=== PATIENT | male | born 1975 | race Caucasian/White ===

== ENCOUNTER → 2017-04-12 | Outpatient (CLI) | payer OTHER ==
[~2017-04-12] MED LIST: GADAVIST IV PRN; MULT-506 PO
--- NOTE | 2017-04-12 13:13 | DIAGNOSTIC IMAGING REPORT ---
MRI THE LEFT MIDFOOT WITHOUT A WITH GADOLINIUM CLINICAL HISTORY: Chronic left foot pain. Possible subluxation syndrome of the cuboid. COMPARISON STUDY: No previous studies for comparison. FINDINGS: Imaging was performed in the sagittal, axial, and coronal planes before and after the administration of 11 cc of intravenous Gadavist. There are no areas of marrow replacement to indicate neoplasm. There are no areas of marrow edema to indicate occult fracture or bone bruise. The calcaneocuboid relationship appears normal, on these nonstress views. There is no MRI evidence of ligamentous disruption. There is no evidence of tendon tear. There are no pathologically enhancing masses. There is a 10 x 5 x 5 mm subcutaneous cyst within the lateral soft tissues just dorsal to the base of the fourth metatarsal IMPRESSION: 1. No evidence of occult fracture or bone bruise 2. No evidence of subluxation. The calcaneocuboid relationship appears normal 3. No evidence of ligamentous disruption. No evidence of tendon tear 4. 10 x 5 x 5 mm subcutaneous cyst within the lateral soft tissues just dorsal to the base of the fourth metatarsal Electronically signed by: Mak Moore M.D. 04/12/2017 1:12 PM Dictated Date/Time: 04/12/2017 12:53 PM
== END | disposition home or self-care (01) ==
LOC: C.MRI 10:39
PROVIDERS: ATTEND Podiatrist Primary Podiatric Medicine
DX: M79.672 Pain in left foot (principal)

== ENCOUNTER → 2017-06-14 | Outpatient (CLI) | payer OTHER ==
[~2017-06-14] MED LIST changes: -GADAVIST IV PRN
[2017-06-14 10:14] LABS: CHOLESTEROL/HDL RATIO 3.1
== END | disposition home or self-care (01) ==
LOC: C.LAB 07:04
PROVIDERS: ATTEND Family Medicine
DX: Z13.1 Encounter for screening for diabetes mellitus (principal); Z13.6 Encounter for screening for cardiovascular disorders

== ENCOUNTER → 2018-04-03 | Outpatient (CLI) | payer OTHER ==
--- NOTE | 2018-04-03 11:54 | DIAGNOSTIC IMAGING REPORT ---
L UPPER EXT JOINT WITHOUT CLINICAL HISTORY: 42 years-old Male presenting with PAIN IN L DISTAL BICEPS RUPTURE. TECHNIQUE: Multisequence, multiplanar MR imaging of the left elbow was performed without the use of intravenous contrast. IV contrast: None. COMPARISON: None. FINDINGS: Localizer images: Unremarkable. Bone marrow: Normal bone marrow signal intensity. No bony edema. Articular cartilage: Articular cartilage preserved. Lateral collateral ligament: Lateral collateral ligaments including the radial collateral ligament, lateral ulnar collateral ligament, and annular ligament intact. Common extensor tendon: Intact. Medial collateral ligament: Medial collateral ligament complex including the anterior, posterior and oblique bands of the ulnar collateral ligament intact. Common flexor tendon: Intact. Ulnar nerve: Normal. Tendons: Triceps, biceps, and brachialis tendons intact. Joint effusion: No significant elbow joint effusion. Muscle: Normal muscle bulk and muscle signal intensity. Superficial soft tissue: No subcutaneous edema. IMPRESSION: Normal MR examination of the elbow. Electronically signed by: Enoc Guadarrama M.D. 04/03/2018 11:53 AM Dictated Date/Time: 04/03/2018 11:42 AM
== END | disposition home or self-care (01) ==
LOC: C.MRI 10:54
PROVIDERS: ATTEND Orthopaedic Surgery
DX: M79.602 Pain in left arm (principal)

== ENCOUNTER → 2018-06-05 | Outpatient (CLI) | payer OTHER ==
[2018-06-05 10:09] LABS: BLOOD UREA NITROGEN 20 mg/dl (7-18); CALCIUM 9.1 mg/dl (8.5-10.1); CARBON DIOXIDE 29 mmol/L (21-32); CHOLESTEROL 174 mg/dl (0-200); CREATININE 1.33 mg/dl (0.60-1.40); GLUCOSE 83 mg/dl (70-99); LDL CHOLESTEROL CALCULATED 100 mg/dl; POTASSIUM 4.2 mmol/L (3.5-5.1); SODIUM 140 mmol/L (136-145)
== END | disposition home or self-care (01) ==
LOC: C.LAB 07:05
PROVIDERS: ATTEND Family Medicine
DX: Z00.00 Encounter for general adult medical examination without abnormal findings (principal)

== ENCOUNTER 2022-12-09 22:41 | Observation (INO) ==
[2022-12-09] MEDS ORDERED: HYDROmorphone INJ 0.5 MG/0.5 ML SYR IV STA (23:00)
[2022-12-09] MEDS ORDERED: AMPICILLIN/SULBACTAM SOD 3,000 MG in 0.9 % SODIUM CHLORIDE 100 ML IV STA (23:00)
[2022-12-09] MEDS ORDERED: KETOROLAC 30 MG/ML VIAL IV STA (23:00)
--- NOTE | 2022-12-09 23:06 | Emergency Department Note ---
Impression & Plan Cellulitis of hand, left, Cat bite ED Provider Note INFORMANT: Patient ED PROVIDER(S): Gabriel Petersen DO CHIEF COMPLAINT: cellulitis and pain right hand, cat bite PLAN: Disposition: Admission Condition: Stable Outpatient prescription management: none Referral: I spoke with the hospitalist, who will see the patient for admission/observation and further evaluation and consultation. MEDICAL DECISION MAKING: This is a 47-year-old male who presents to the ED with a chief complaint of a right hand infection. The patient states that his cat bit him on Saturday. He wa s started on Augmentin from the urgent care on Saturday. His symptoms are worsened since then despite the Augmentin. He has had the Augmentin all day Saturday and Saturday. The patient reports increasing swelling and redness and pain and the redness is traveling up his arm towards the elbow. No nausea or vomiting. Vital signs reveal hypertension. Physical exam reveals erythema to the dorsal aspect of the hand starting at the MCP joints traveling of the right dorsal forearm. There is swelling and erythema. No discharge. The pain is worsened with flexion. CBC and chemistry panel was unremarkable. No leukocytosis or anemia. The patient was [place] of IV Unasyn. He was given IV Toradol and some IV hydromorphone for the pain. He will be seen by the hospitalist for further evaluation and care. Triage Nursing notes reviewed. Vital Signs: reviewed Prior /Outside records reviewed: none Differential diagnosis: Cellulitis, calf pain, lymphangitis, systemic infection, deep hand infection Diagnostics, as interpreted by me: 12 lead ECG: none Cardiac Monitoring: none Medical decision rules: none Imaging studies: Procedures: none. Critical care: none. HPI: See MDM above. PAST MEDICAL HISTORY: See Below PAST SURGICAL HISTORY: See Below SOCIAL HISTORY: See Below HOME MEDICATIONS: See Below ALLERGIES: See Below VITALS: See Below PHYSICAL EXAMINATION: CONSTITUTIONAL/VITAL SIGNS: Reviewed GENERAL: Non-toxic in appearance. INTEGUMENTARY: Warm, dry, and [place]. HEAD: Normocephalic. EYES: without scleral icterus. ENT/OROPHARYNX: clear and moist. RESPIRATORY: No increased work of breathing. Lungs clear. CARDIOVASCULAR: Regular rate. Regular rhythm. GI/ABDOMEN: Soft and nontender. . EXTREMITIES: Normal NEUROLOGICAL: Intact without focal deficits. PSYCHIATRIC: Normal affect. MUSCULOSKELETAL: Normal. TRIAGE NURSING DOCUMENTATION REVIEWED. Past Med/Surg History Medical History Asthma LAST USED INHALER 2 WEEKS AGO Surgical History Family history of reaction to anesthesia MOTHER>NAUSEA H/O wrist surgery right H/O: knee surgery LEFT X 3 RT X 2 H/O: vasectomy Hx of LASIK S/P tendon repair right bicep tendon repair Family History Father Asthma Hypertension Lung disease Skin cancer Mother Skin cancer Breast cancer Grandmother Colorectal cancer Denies family history of Ovarian cancer Prostate cancer Myocardial infarction Social History Smoking Status: Never smoker Second Hand Exposure: Yes ( A CHILD); Hx Alcohol Use: Yes Alcohol type: beer Alcohol Intake Frequency: 2-4 x/Month Preferred Language: Libyan Communication Ability: Effective Visual Impairment: No Limitations Hearing Ability: Normal Diving Board Assembler Required: No Beliefs That Will Affect Care: None marital status: Current Living Situation: Family current occupational status: employed current occupation: Clinical Records Associate How many Children do You have: 1 Feels Safe at Home: Yes Childhood Exposure to Second-Hand Smoke: Yes Dental Care, Regularly: Yes Physical Activity Frequency: 5-6 Times per Week Seatbelt Use: always Sunscreen Use: No Assistive Devices: Glasses Allergies Allergies Allergy/AdvReac Type Severity Reaction Status Date / Time bee venom protein (honey bee) Allergy Unknown no Verified 08/17/22 10:46 problems recently Home Meds Home Medications Medication Instructions Recorded Confirmed multivitamin 1 tab PO QAM 08/08/22 08/17/22 Previous Rx's Medication Instructions Recorded ipratropium 20 mcg-albuterol 100 1 puff inhalation Q4H PRN chest 06/13/21 mcg/actuation mist for inhalation colds #4 grams (Combivent Respimat) fluticasone furoate 200 1 inh inhalation DAILY PRN chest 11/24/21 mcg-vilanterol 25 mcg/dose congestion #60 ea inhalation powder (Breo Ellipta) Results & Data (ED) Vital Signs Vital Signs - 24 hr 12/09/22 22:43 Temperature 37 C Temperature Source Temporal Artery Scan Pulse Rate 58 L Pulse Rhythm Regular Pulse Strength Normal Respiratory Rate 18 Respiratory Effort / Characteristics Non-Labored Spontaneous Respiratory Depth Normal Respiratory Pattern Regular Blood Pressure 169/95 H Blood Pressure Mean 119 Blood Pressure Position Sitting Pulse Oximetry 98 Oxygen Delivery Method Room Air Sepsis Recent Fever Within 48 Hours No Sepsis New/Unexplained Change in Mental Status N/A Sepsis Action Taken by Nursing No Action Required Laboratory Data 12/09/22 23:12 12/09/22 23:12 Lab Results 12/09/22 12/09/22 Range/Units 23:12 23:12 WBC 9.42 (4.8-10.8) K/ul RBC 4.73 (4.70-6.10) M/uL Hgb 15.0 (14.0-18.0) g/dl Hct 43.1 (42.0-52.0) % MCV 91.1 (80.0-100.0) fL MCH 31.7 (25.0-34.0) pg MCHC 34.8 (32.0-36.0) g/dL RDW Std Deviation 38.9 (36.4-46.3) fL RDW Coeff of Melvina 11.5 (11.5-14.5) % Plt Count 161 (130-400) K/uL MPV 11.2 (9.4-12.4) fL Immature Gran % (Auto) 0.2 % Neut % (Auto) 57.6 % Lymph % (Auto) 30.4 % [place] % (Auto) 9.9 % Eos % (Auto) 1.5 % Baso % (Auto) 0.4 % Neut # (Auto) 5.43 (1.40-6.50) K/uL Lymph # (Auto) 2.86 (1.2-3.4) K/uL [place] # (Auto) 0.93 H (0.11-0.59) K/uL Eos # (Auto) 0.14 (0-0.50) K/uL Baso # (Auto) 0.04 (0-0.2) K/uL Immature Gran # (Auto) 0.02 (0.01-0.20) K/uL Sodium 139 (136-145) mmol/L Potassium 4.1 (3.5-5.1) mmol/L Chloride 107 (98-107) mmol/L Carbon Dioxide 25 (21-32) mmol/L Anion Gap 7 (3-11) BUN 29 H (6-23) mg/dl Creatinine 0.83 (0.6-1.4) mg/dl Est Cr Clr Drug Dosing 135.2 ml/min Est GFR ( Amer) 120.6 ml/min Est GFR (Non-Af Amer) 104.0 ml/min BUN/Creatinine Ratio 34.9 H (10-20) Glucose 105 H (70-99(Fasting)) mg/dl Calcium 8.7 (8.5-10.1) mg/dl Administered Medications Discontinued Medications Hydromorphone HCl (Hydromorphone Inj 0.5 Mg/0.5 Ml Syr) 0.5 mg IV NOW STA Stop: 12/09/22 23:01 Last Admin: 12/09/22 23:25 Dose: 0.5 mg Documented By: DEDRICK Ampicillin Sodium/Sulbactam Sodium 3,000 mg/ Sodium Chloride 108 mls @ 200 mls/hr IV NOW STA Stop: 12/09/22 23:32 Last Admin: 12/09/22 23:25 Dose: 200 mls/hr Documented By: DEDRICK Ketorolac Tromethamine (Ketorolac 30 Mg/Ml Vial) 30 mg IV NOW STA Stop: 12/09/22 23:01 Last Admin: 12/09/22 23:25 Dose: 30 mg Documented By: DEDRICK Discharge Plan Visit Data Chief Complaint: Animal Bite Stated Complaint: CAT BITE R HAND ED Provider: Gabriel Petersen Problem: Cellulitis of hand, left, Cat bite Patient Disposition: Being Evaluated by Hospitalist Forms Stand Alone Forms: [facility] Prescriptions Prescriptions: No Action Breo Ellipta 200-25 mcg/dose blister with device 1 inh INH DAILY PRN (Reason: chest congestion) Qty: 60 5RF Combivent Respimat 20-100 mcg/actuation mist 1 puff INH Q4H PRN (Reason: chest colds) Qty: 4 5RF multivitamin Tablet 1 tab PO QAM Referrals Referrals: Vaughn Porter DO [Primary Care Provider] -
[2022-12-09 23:29] LABS: Basophils # (auto) 0.04 K/uL (0-0.2); Basophils % (auto) 0.4 %; Eosinophils # (auto) 0.14 K/uL (0-0.50); Eosinophils % (auto) 1.5 %; Hematocrit (blood only) 43.1 % (42.0-52.0); Immature Granulocytes # (auto) 0.02 K/uL (0.01-0.20); Immature Granulocytes % (auto) 0.2 %; Lymphocytes # (auto) 2.86 K/uL (1.2-3.4); Lymphocytes % (auto) 30.4 %; Mean Corpuscular Hemoglobin 31.7 pg (25.0-34.0); Mean Corpuscular Hgb Conc 34.8 g/dL (32.0-36.0); Mean Corpuscular Volume 91.1 fL (80.0-100.0); Mean Platelet Volume 11.2 fL (9.4-12.4); Monocytes # (auto) 0.93 K/uL (0.11-0.59); Monocytes % (auto) 9.9 %; Neutrophils # (auto) 5.43 K/uL (1.40-6.50); Neutrophils % (auto) 57.6 %; Platelet Count 161 K/uL (130-400); RDW Coefficient of Variation 11.5 % (11.5-14.5); RDW Standard Deviation 38.9 fL (36.4-46.3); Red Blood Count 4.73 M/uL (4.70-6.10); White Blood Count 9.42 K/ul (4.8-10.8)
--- NOTE | 2022-12-09 23:32 | History & Physical Report ---
Date of Service December 09, 2022 Assessment & Plan (1) Cat bite: Plan: Miko is a 47 year old male w/ PmHx asthma admitted for animal bite induced cellulitis not improved with oral antibiotic use. Cat Bite: -WBC 9.42, vitals stable. -Failed outpatient antibiotic treatment. -Given 1 dose of Unasyn 3g in ED. -Will continue on 3g Unasyn q6h, if no improvement may need to add MRSA coverage - ordered MRSA nasal swab. -Continue to trend WBC w/ AM CBC. -Tylenol 650mg q4hr PRN, Toradol 15mg q6h PRN for pain. -Up to date on Tdap, no concerns for rabies as it is patient's cat, up to date on vaccines. -Admit to med/surg. COVID19: -COVID-19 positive test on admission. -No symptoms, vitals stable, continue to monitor. Asthma: -Well controlled, on breo-ellipta and albuterol PRN at home. -If develops SoB or respiratory symptoms can carry forward home regimen. DVT Prophylaxis: Patient mobile, no need for prophylaxis at this time. F/E/N/GI: Regular diet. Code Status: Full code. Dispo: Med/surg. (2) Asthma: (3) COVID-19: History of Present Illness Chief Complaint: Animal Bite Infection Primary Care Provider: Vaughn Porter DO Miko is a 47 year old male w/ PmHx of asthma coming into the ED for worsening skin infection after cat bite. Patient states that Saturday he had a friend over as well as their dog. The dog and his cat did not get along very well and had been bickering throughout the visit. He had tried to separate them at one point however when he did so his cat had bit his right hand. He states the rest of Saturday he was feeling fine however when he woke up Saturday he was feeling a little warm and there had been development of a redness around the bites and some swelling. His temperature was normal when he took it Saturday. He went to urgent care on Saturday and received a prescription for Augmentin however even after taking the medication for a day the erythema and tenderness on his arm spread distally. His hand has become so swollen he is unable to make a complete fist although he still retains full feeling of the whole hand. He denies any shortness of breath, chest pain, abdominal pain, diarrhea, constipation. He had a Tdap shot in 2021 and says his cat is up to date on all vaccines. In the ED WBC was 9.42, hgb 15.0, platelets 161, BUN 29, creat 0.83, electrolytes WNL, COVID+. Allergies Allergy/AdvReac Type Severity Reaction Status Date / Time bee venom protein (honey bee) Allergy Unknown no Verified 08/17/22 10:46 problems recently Home Medications Medication Instructions Recorded Confirmed Type ipratropium 20 mcg-albuterol 100 1 puff inhalation Q4H PRN chest 06/13/21 08/17/22 Rx mcg/actuation mist for inhalation colds #4 grams (Combivent Respimat) fluticasone furoate 200 1 inh inhalation DAILY PRN chest 11/24/21 08/17/22 Rx mcg-vilanterol 25 mcg/dose congestion #60 ea inhalation powder (Breo Ellipta) multivitamin 1 tab PO QAM 08/08/22 08/17/22 History Past Med/Surg History Medical History Asthma LAST USED INHALER 2 WEEKS AGO Surgical History Family history of reaction to anesthesia MOTHER>NAUSEA H/O wrist surgery right H/O: knee surgery LEFT X 3 RT X 2 H/O: vasectomy Hx of LASIK S/P tendon repair right bicep tendon repair Family History Father Asthma Hypertension Lung disease Skin cancer Mother Skin cancer Breast cancer Grandmother Colorectal cancer Denies family history of Ovarian cancer Prostate cancer Myocardial infarction Social History Smoking Status: Never smoker Second Hand Exposure: No; Do You Dip or Chew Tobacco: No; Tobacco Cessation Education Requested by Patient: No Hx Alcohol Use: Yes Alcohol type: beer Alcohol Intake Frequency: 2-4 x/Month Hx Substance Use: No Preferred Language: Portuguese Communication Ability: Effective Visual Impairment: No Limitations Hearing Ability: Normal Equipment Maintenance Superintendent Required: No Beliefs That Will Affect Care: None marital status: Current Living Situation: Spouse current occupational status: employed current occupation: Clinical Painter [employer] How many Children do You have: 1 Other Information That Helps Us Care for You: No Feels Safe at Home: Yes Safety Concerns: Feels Safe At This Time Childhood Exposure to Second-Hand Smoke: Yes Dental Care, Regularly: Yes Physical Activity Frequency: 5-6 Times per Week Seatbelt Use: always Sunscreen Use: No Assistive Devices: None Review of Systems Review of Systems: As per HPI. Physical Exam Constitutional: WD/WN, vitals as above Eyes: PERRL, conjunctivae normal, anicteric sclerae Respiratory: normal respiratory effort, lungs clear to auscultation Cardiovascular: RRR, no murmur, no edema Gastrointestinal (Abdomen): normal bowel sounds, soft, nontender, no hepatosplenomegaly Skin: 4 bite wounds identified on the R dorsal hand, one bite distal to the MCP of the 3rd digit, one bite proximal to MCP of 3rd digit, 2 bites located in between the third and fourth digit on the hand. No active drainage seen. Erythema extending from dorsum of hand distally to the distal forearm. Tenderness to palpation along erythema. A dark, thick line making a burns paiute encircles the original area on Saturday followed by a fainter line encircling the new erythematous area with a little more progression of erythema. Results & Data Results & Data ([facility]) Vital Signs (Past 12 Hours) Vital Signs Temp Pulse Resp BP Pulse Ox O2 Del Method 12/09/22 22:43 37 C 58 L 18 169/95 H 98 Room Air Supervising Physician Co-Signing Physician Notes Patient seen and examined, chart reviewed, case discussed with Dr. Moore and I agree with the assessment and plan as above. Resident Activity Tracking Resident Involvement: Resident Care Provided Care Provided: Adult Hospital Medicine
[2022-12-09 23:47] LABS: Calcium 8.7 mg/dl (8.5-10.1); Potassium 4.1 mmol/L (3.5-5.1)
[2022-12-09 23:52] LABS: BUN Creatinine Ratio 34.9 (10-20); Creatinine Clr Calc Pharmacy 135.2 ml/min; Est GFR (African American) 120.6 ml/min
[2022-12-10] MEDS: ACETAMINOPHEN 325 MG TAB PO PRN ×2 (02:43→09:01)
[2022-12-10] MEDS: AMPICILLIN/SULBACTAM SOD 3,000 MG in 0.9 % SODIUM CHLORIDE 100 ML IV SCH ×4 (05:36→23:28)
[2022-12-10] MEDS: KETOROLAC TROMETHAMINE 15 MG/ML VIAL IV PRN ×3 (05:54→20:26)
[2022-12-10] MEDS ORDERED: MoRPHine SULFATE 10 MG/0.5 ML UDP PO PRN (06:12)
--- NOTE | 2022-12-10 06:16 | Billing Data ---
Date of Service December 09, 2022 Coding Level of Care Code 77122 INT INP/OBS CARE
[2022-12-10] MEDS: oxyCODONE HCL IR 5 MG TAB (IMMEDIATE RELEASE) PO PRN ×3 (06:30→23:28)
--- NOTE | 2022-12-10 07:30 | Hospitalist Progress Note ---
Date of Service December 10, 2022 Assessment & Plan (1) Cat bite: Plan: Miko is a 47 year old male w/ PmHx asthma admitted for animal bite induced cellulitis not improved with oral antibiotic use. Cat Bite: -WBC 9.42, vitals stable. -Failed outpatient antibiotic treatment. -Given 1 dose of Unasyn 3g in ED. -Will continue on 3g Unasyn q6h, if no improvement may need to add MRSA coverage - ordered MRSA nasal swab. -Continue to trend WBC w/ AM CBC. -Tylenol 650mg q4hr PRN, Toradol 15mg q6h PRN for pain. -Up to date on Tdap, no concerns for rabies as it is patient's cat, up to date on vaccines. -Admit to med/surg. COVID19: -COVID-19 positive test on admission. -No symptoms, vitals stable, continue to monitor. Asthma: -Well controlled, on breo-ellipta and albuterol PRN at home. -If develops SoB or respiratory symptoms can carry forward home regimen. DVT Prophylaxis: Patient mobile, no need for prophylaxis at this time. F/E/N/GI: Regular diet. Code Status: Full code. Dispo: Med/surg. (2) Asthma: (3) COVID-19: Admission and Anticipated Discharge Date Admission Date: December 10, 2022 Subjective 12/10: Review of Systems Review of Systems: As per HPI. Physical Exam Physical Exam: See attending attestation. Results & Data Results & Data ([facility]) Vital Signs (Past 12 Hours) Vital Signs Temp Pulse Pulse Resp BP BP Pulse Ox 12/10/22 05:33 141/83 H 12/10/22 02:16 54 L 16 164/99 H 95 12/10/22 01:49 86 14 136/84 97 12/09/22 22:43 37 C 58 L 18 169/95 H 98 O2 Del Method 12/10/22 05:33 12/10/22 02:16 Room Air 12/10/22 01:49 Room Air 12/09/22 22:43 Room Air Diagnostic Findings Laboratory Results WBC 9.42 K/ul (4.8-10.8) 12/09/22 23:12 RBC 4.73 M/uL (4.70-6.10) 12/09/22 23:12 Hgb 15.0 g/dl (14.0-18.0) 12/09/22 23:12 Hct 43.1 % (42.0-52.0) 12/09/22 23:12 MCV 91.1 fL (80.0-100.0) 12/09/22 23:12 MCH 31.7 pg (25.0-34.0) 12/09/22 23:12 MCHC 34.8 g/dL (32.0-36.0) 12/09/22 23:12 RDW Std Deviation 38.9 fL (36.4-46.3) 12/09/22 23:12 RDW Coeff of Melvina 11.5 % (11.5-14.5) 12/09/22 23:12 Plt Count 161 K/uL (130-400) 12/09/22 23:12 MPV 11.2 fL (9.4-12.4) 12/09/22 23:12 Immature Gran % (Auto) 0.2 % 12/09/22 23:12 Neut % (Auto) 57.6 % 12/09/22 23:12 Lymph % (Auto) 30.4 % 12/09/22 23:12 [place] % (Auto) 9.9 % 12/09/22 23:12 Eos % (Auto) 1.5 % 12/09/22 23:12 Baso % (Auto) 0.4 % 12/09/22 23:12 Neut # (Auto) 5.43 K/uL (1.40-6.50) 12/09/22 23:12 Lymph # (Auto) 2.86 K/uL (1.2-3.4) 12/09/22 23:12 [place] # (Auto) 0.93 K/uL (0.11-0.59) H 12/09/22 23:12 Eos # (Auto) 0.14 K/uL (0-0.50) 12/09/22 23:12 Baso # (Auto) 0.04 K/uL (0-0.2) 12/09/22 23:12 Immature Gran # (Auto) 0.02 K/uL (0.01-0.20) 12/09/22 23:12 Sodium 139 mmol/L (136-145) 12/09/22 23:12 Potassium 4.1 mmol/L (3.5-5.1) 12/09/22 23:12 Chloride 107 mmol/L (98-107) 12/09/22 23:12 Carbon Dioxide 25 mmol/L (21-32) 12/09/22 23:12 Anion Gap 7 (3-11) 12/09/22 23:12 BUN 29 mg/dl (6-23) H 12/09/22 23:12 Creatinine 0.83 mg/dl (0.6-1.4) 12/09/22 23:12 Est Cr Clr Drug Dosing 135.2 ml/min 12/09/22 23:12 Est GFR ( Amer) 120.6 ml/min 12/09/22 23:12 Est GFR (Non-Af Amer) 104.0 ml/min 12/09/22 23:12 BUN/Creatinine Ratio 34.9 (10-20) H 12/09/22 23:12 Glucose 105 mg/dl (70-99(Fasting)) H 12/09/22 23:12 Calcium 8.7 mg/dl (8.5-10.1) 12/09/22 23:12 Nasal Screen MRSA (PCR) Negative (Negative) 12/10/22 02:37 SARS-CoV-2, RNA, NAAT POSITIVE (NEGATIVE) A* 12/09/22 23:40 Resident Activity Tracking Resident Involvement: Resident Care Provided Care Provided: Adult Hospital Medicine
[2022-12-10 08:46] LABS: Basophils # (auto) 0.02 K/uL (0-0.2); Basophils % (auto) 0.2 %; Eosinophils # (auto) 0.11 K/uL (0-0.50); Eosinophils % (auto) 1.2 %; Hematocrit (blood only) 41.7 % (42.0-52.0); Hemoglobin 14.5 g/dl (14.0-18.0); Immature Granulocytes # (auto) 0.03 K/uL (0.01-0.20); Immature Granulocytes % (auto) 0.3 %; Lymphocytes # (auto) 2.08 K/uL (1.2-3.4); Lymphocytes % (auto) 22.6 %; Mean Corpuscular Hemoglobin 31.5 pg (25.0-34.0); Mean Corpuscular Hgb Conc 34.8 g/dL (32.0-36.0); Mean Corpuscular Volume 90.5 fL (80.0-100.0); Monocytes # (auto) 0.93 K/uL (0.11-0.59); Monocytes % (auto) 10.1 %; Neutrophils # (auto) 6.05 K/uL (1.40-6.50); Neutrophils % (auto) 65.6 %; Platelet Count 153 K/uL (130-400); RDW Coefficient of Variation 11.8 % (11.5-14.5); RDW Standard Deviation 39.1 fL (36.4-46.3); Red Blood Count 4.61 M/uL (4.70-6.10); White Blood Count 9.22 K/ul (4.8-10.8)
[2022-12-10 09:11] LABS: Calcium 8.9 mg/dl (8.5-10.1); Potassium 3.9 mmol/L (3.5-5.1)
[2022-12-10 09:16] LABS: BUN Creatinine Ratio 32.1 (10-20); Creatinine Clr Calc Pharmacy 133.3 ml/min; Est GFR (Non-African American) 103.5 ml/min
--- NOTE | 2022-12-10 17:43 | Hospitalist Progress Note ---
Date of Service December 10, 2022 Assessment & Plan (1) Cat bite: Plan: Miko is a 47 year old male w/ PmHx asthma admitted for animal bite induced cellulitis not improved with oral antibiotic use. Cat Bite: -No sepsis, but given his focal symptoms and limited extension of his third digitI do have concern about extensor tenosynovitis. Given that the erythema improved on Unasyn, fortunately not likely to be MRSA or resistant gram-neg ative'smore likely regular staph strep, gram-negative's given cat bite as mechanism. Discussed with patient watchful waiting/continue course of antibiotics versus MRI, and given the focused area of limitation, and the high concern on extensor tenosynovitis that may require orthopedic surgical interventionwe agreed to proceed with MRI -Continue Unasyn for now -Up to date on Tdap, no concerns for rabies as it is patient's cat, up to date on vaccines. COVID19: -COVID-19 positive test on admission. -No symptoms, vitals stable, continue to monitor. Asthma: -Well controlled, on breo-ellipta and albuterol PRN at home. -Follow given asymptomatic COVID-positive test, but right now appears to not be an issue (2) Asthma: (3) COVID-19: Admission and Anticipated Discharge Date Admission Date: December 10, 2022 Subjective Large area of redness in hand and wrist is getting better, most of the pain is better. Extensor surface of hand centering on third digit MP joint still quite tender and restricted range of motion. He notes that he really cannot extend his finger very well. No other new complaints. Review of Systems Review of Systems: All systems reviewed & are unremarkable except as noted in HPI & below Physical Exam Physical Exam: General he is awake and alert oriented x3 pleasant no distress. HEENT normocephalic atraumatic mucous membranes moist. Breathing unlabored no accessory muscle use good effort. Skin shows no rashes no pallor or icterus. Neuro without focal deficits. Extremities shows his right upper extremity to have approximately a 3 cm circumferential area of erythema and tendernessthe predominance of this is centered around his right third MP jointat which area the skin is fairly tender. There is an obvious puncture wound with a small amount of exudatealthough none of it can really be freely expressed. There are 3 other puncture wounds further up his handall in the main area of erythema. This is within 1 confined outlined area. His second outlined area which really at this point has no erythemahe has no extensor tenderness in his forearm, no crepitus. I cannot feel any effusion or tenderness in his wrist joint itself. He has fairly restricted extension of his right third digit. Flexion is okay. The remainder of his digits flex and extend okay as well. Results & Data Results & Data ([facility]) Vital Signs (Past 12 Hours) Vital Signs Temp Pulse Resp BP Pulse Ox O2 Del Method 12/10/22 15:33 98.2 F 63 18 143/82 H 96 Room Air 12/10/22 08:43 98.1 F 70 18 121/80 95 Room Air PG Care Time/CCT Total # of Minutes Spent Total Time Spent with Patient: Total time spent is greater than 50% in coordination of care (as documented) at patient's floor/unit and/or counseling patient: Coding Level of Care Code 40877 SUB INP/OBS CARE 3/50MIN Diagnoses Cat bite W55.01XA Asthma J45.909 COVID-19 U07.1
--- NOTE | 2022-12-10 17:43 | Billing Data ---
Date of Service December 10, 2022 Coding Level of Care Code 41651 SUB INP/OBS CARE MIN
[2022-12-10] MEDS ORDERED: oxyCODONE HCL IR 5 MG TAB (IMMEDIATE RELEASE) PO STA (17:51)
[2022-12-11] MEDS: AMPICILLIN/SULBACTAM SOD 3,000 MG in 0.9 % SODIUM CHLORIDE 100 ML IV SCH ×2 (05:36→12:26)
[2022-12-11] MEDS: oxyCODONE HCL IR 5 MG TAB (IMMEDIATE RELEASE) PO PRN ×2 (05:37→12:30)
[2022-12-11] MEDS: KETOROLAC TROMETHAMINE 15 MG/ML VIAL IV PRN (08:38)
[2022-12-11 09:10] LABS: Hematocrit (blood only) 43.4 % (42.0-52.0); Hemoglobin 15.5 g/dl (14.0-18.0); Mean Corpuscular Hemoglobin 31.9 pg (25.0-34.0); Mean Corpuscular Hgb Conc 35.7 g/dL (32.0-36.0); Mean Corpuscular Volume 89.3 fL (80.0-100.0); Mean Platelet Volume 10.9 fL (9.4-12.4); Platelet Count 182 K/uL (130-400); RDW Coefficient of Variation 11.4 % (11.5-14.5); RDW Standard Deviation 36.8 fL (36.4-46.3); Red Blood Count 4.86 M/uL (4.70-6.10); White Blood Count 9.49 K/ul (4.8-10.8)
[2022-12-11 09:27] LABS: Albumin Globulin Ratio 1.4 (0.9-2); Bilirubin,Total 0.6 mg/dl (0.2-1.0); Calcium 9.4 mg/dl (8.5-10.1); Creatinine Clr Calc Pharmacy 131.7 ml/min; Est GFR (African American) 119.4 ml/min; Globulin 2.8 gm/dl (2.5-4.0); Potassium 4.1 mmol/L (3.5-5.1); Total Protein 6.8 gm/dl (6.0-8.3)
--- NOTE | 2022-12-11 10:12 | Magnetic Resonance Report ---
MRI OF THE RIGHT HAND WITHOUT CONTRAST CLINICAL HISTORY: infection, cant extend 3rd digit, ?tenosynovitis COMPARISON STUDY: No previous studies for comparison. TECHNIQUE: Utilizing a 1.5 Alyce magnet and dedicated coil, multiplanar, multiecho imaging of the rig ht hand was performed without intravenous contrast. FINDINGS: Alignment of the right hand is anatomic. There is no marrow edema. Note is made of dorsal s ubcutaneous edema of the right hand. There is soft tissue thickening adjacent to the third digit exte nsor tendon at the level of the metacarpal head. There is no increased fluid within the tendon sheath to suggest tenosynovitis. There are a few possible tiny pockets of fluid adjacent to the extensor te ndon. These measure up to 7 mm. Findings are suboptimally assessed on this unenhanced exam. Visualize d portions the flexor and extensor tendons are intact. No drainable fluid collection is present. IMPRESSION: 1. Dorsal right hand subcutaneous edema most pronounced at the level the third metacarpal head. This represents cellulitis. 2. No increased fluid within the tendon sheath to suggest tenosynovitis. 3. Soft tissue thickening adjacent to the extensor tendon for the right third digit with overlying wo und. A few equivocal tiny fluid collections measuring up to 7 mm. This could simply represent edema. Phlegmon or small developing abscesses cannot be completely excluded on this unenhanced exam. ACT 112: Negative or not required by law. Electronically signed by: Agustin Dean M.D. 12/11/2022 10:10 AM
--- NOTE | 2022-12-11 18:12 | Discharge Summary ---
Date of Service December 11, 2022 Admission HPI Per Admitting Provider Miko is a 47 year old male w/ PmHx of asthma coming into the ED for worsening skin infection after cat bite. Patient states that Saturday he had a friend over as well as their dog. The dog and his cat did not get along very well and had been bickering throughout the visit. He had tried to separate them at one point however when he did so his cat had bit his right hand. He states the rest of Saturday he was feeling fine however when he woke up Saturday he was feeling a little warm and there had been development of a redness around the bites and some swelling. His temperature was normal when he took it Saturday. He went to urgent care on Saturday and received a prescription for Augmentin however even after taking the medication for a day the erythema and tenderness on his arm spread distally. His hand has become so swollen he is unable to make a complete fist although he still retains full feeling of the whole hand. He denies any shortness of breath, chest pain, abdominal pain, diarrhea, constipation. He had a Tdap shot in 2021 and says his cat is up to date on all vaccines. In the ED WBC was 9.42, hgb 15.0, platelets 161, BUN 29, creat 0.83, electrolytes WNL, COVID+. Principal Diagnosis Hand cellulitis Discharge Exam Right hand with improving erythemanow predominantly focused over the right th ird digit MP extensor side. 2 puncture wounds appear to be healing nicely. The other 2 appear to have mild pustulesthe one immediately above his MP joint I was able to gently express exudate, the other did not have exudate able to be expressed. Erythema definitely improved compared to yesterday. No crepitus. Outside of about a 2 cm iroquois more or less immediately above his third MP extensor side, he really has almost no other erythema or tenderness. No crepitus. Still limited range of motion extending his right third digit, good strength and range of motion in flexion and with the rest of his fingers. Discharge Data Allergies Allergy/AdvReac Type Severity Reaction Status Date / Time bee venom protein (honey bee) Allergy Unknown no Verified 08/17/22 10:46 problems recently Consultations 12/09/22 23:54 ED Decision to Admit Stat Ordered Studies 12/11/22 23:57 MR hand RT wo con Routine Hospital Course (1) Cat bite: Miko is a 47 year old male w/ PmHx asthma admitted for animal bite induced cellulitis not improved with oral antibiotic use. Cat Bite: -No sepsis, but given his focal symptoms and limited extension of his third digithad concern about extensor tenosynovitis. Given that the erythema improved on Unasyn, fortunately not likely to be MRSA or resistant gram- negativesmore likely regular staph strep, gram-negatives given cat bite as mechanism. Fortunately MRI did not show tenosynovitis/septic arthritis/etc. And given that overall erythema is improvingsafe/stable for home on Augmentinpresumed 14-day course, but if he starts to show rapid improvement, this can obviously be shortened. Instructed on trying to keep the areas of puncture wound open and draining. Discussed small risk of abscess formation that might require a true medical drainagebut unlikely. Close PCP follow-up. -Continue Unasyn for now -Up to date on Tdap, no concerns for rabies as it is patient's cat, up to date on vaccines. COVID19: -COVID-19 positive test on admission. -No symptoms, vitals stable, stable for home Asthma: -Well controlled, on breo-ellipta and albuterol PRN at home. -Follow given asymptomatic COVID-positive test, but right now appears to not be an issue Total Time Total Time Spent Total Time Spent (In Minutes): Less than 30 Discharge Plan Discharge Items Patient Disposition: Home - Self-Care Reason For Visit: CAT BITE INFECTION Discharge Diagnosis: hand cellulitis Activity: Resume your previous activity Non-emergency contact: Primary Care Provider Call non-emergency contact if: you have any medication questions, your symptoms worsen, your pain is not controlled, your pain is worsening and your temperature is above 101 Follow-up/Referrals: Vaughn Porter DO [Primary Care Provider] - 12/17/22 9:20 am Diet: Regular Addtl Attending Provider Instructions: hand cellulitis -fortunately the MRI did not show any sign of a bone/joint infection or an infection of the tendons -- this means that the main reason that you're so limited with extension is because the main area where the skin/soft tissue infection sits is right above the joint/tendon - just creating pressure/pain with movement -the puncture wounds don't show any clear abscess that requires an I&D, but the two closer to the middle do warrant a close eye -- as long as you are able to keep them open and draining, they should heal with time, but if they were to close off and not be able to open up, then they could require more formal drainage -salt water soaks, or betadine soaks ~2-3 times a day -topical bacitracin on each puncture wound 3-4 times a day (like we talked - i'd avoid a triple antibiotic ointment mostly because a decent percent of people will actually develop a topical skin allergy to one of the components - but plain bacitracin should not do this) -take the augmentin for a presumed 14 day total course (although if you really start to turn the corner faster, then Dr Porter might be able to instruct you to stop sooner) -for pain control - for now I'd recommend doing something more or less around the clock to stay ahead of things. as the infection improves the pain will les sen and you can start to spread things out/back things off. right now i'd say use tylenol 500mg, ibuprofen 600mg, oxycodone 5mg all on their own 6 hour cycles - so that you're taking something every 2 hours (ie tylenol 8am, ibuprofen 10am, oxycodone 12pm; repeat cycle) -- as the pain lessens, drop oxycodone doses first since it'll be the most side effect prone (groggy/slow/constipation); drop the ibuprofen next, and then drop the tylenol last ---> things should show slow/steady improvement, if there is worsening we'd want Dr Porter to see it right away. if it stalls out and just seems to show no clear improvement - you can give it 2-3 days but then get looked at Pending Studies at Discharge: No Stand-Alone Forms: [facility] [employer], Smoking Cessation Medications and DC Order Prescriptions: New oxycodone 5 mg Tablet 5 mg PO Q6 PRN (Reason: severe pain (scale score 7-10)) Qty: 10 0RF amoxicillin-pot clavulanate 875-125 mg tablet 1 tab PO BID Qty: 28 0RF Continued Breo Ellipta 200-25 mcg/dose blister with device 1 inh INH DAILY PRN (Reason: chest congestion) Qty: 60 5RF Combivent Respimat 20-100 mcg/actuation mist 1 puff INH Q4H PRN (Reason: chest colds) Qty: 4 5RF multivitamin Tablet 1 tab PO QAM Discharge Orders: Discharge Order (Routine); Ordered 12/11/22 Ordered By: Alirio López/Other Patient Handouts: 2019 Novel Coronavirus, COVID-19 Home Care Admission Data Admit Date/Time: 12/10/22 00:24 Attending Provider: Alirio Shah Admit Provider: Abdoulaye Moore Primary Care Provider: Vaughn Porter Other Providers: Wilma Chacon Other Interventions: Discharge Summary Assessment (RN) Last Done: 12/11/22 13:29 Coding Level of Care Code HOSP INP/OBS DISCH 30 MIN/LESS Diagnoses Cat bite W55.01XA
== END 2022-12-11 15:46 | disposition home or self-care (01) ==
LOC: ED 22:41 → 3W 22:41 → SUATTDRO 12-10 00:24 → 3W 12-10 01:49